=== PATIENT | male | born 1960 | race Caucasian/White ===

== ENCOUNTER 2019-01-01 17:02 | Emergency (ER) | payer MEDICAID ==
[~2019-01-01] VITALS: Ht 180.3 cm; Wt 78.0 kg
[2019-01-01 19:25] VITALS: BP 149/87
== END 2019-01-01 19:31 | disposition home or self-care (01) ==
LOC: ED 19:00
DX: G70.00 Myasthenia gravis without (acute) exacerbation (principal); Z76.0 Encounter for issue of repeat prescription
CPT/HCPCS: 99283

== ENCOUNTER 2019-09-15 11:42 | Emergency (ER) | payer MEDICAID ==
[~2019-09-15] VITALS: Ht 180.3 cm; Wt 80.6 kg
[~2019-09-15 11:42] MED LIST: NICO-487 TD; PRED20TA PO; PYRI60TA PO; SUMA25TA3 PO
[2019-09-15 11:53] VITALS: BP 144/96
--- NOTE | 2019-09-15 13:46 | NUR ---
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
== END 2019-09-15 14:45 | disposition home or self-care (01) ==
LOC: ED 14:28
DX: G70.00 Myasthenia gravis without (acute) exacerbation (principal); Z76.0 Encounter for issue of repeat prescription
CPT/HCPCS: 99281

== ENCOUNTER 2019-10-21 09:11 | Emergency (ER) | payer MEDICAID ==
[~2019-10-21] VITALS: Ht 180.3 cm; Wt 78.2 kg
[2019-10-21 09:17] VITALS: BP 139/88
[2019-10-21] MEDS ORDERED: LIDOCAINE-MPF 1%, 5ML ONE (09:41)
[2019-10-21] MEDS ORDERED: LIDOCAINE-MPF 1%, 5ML INFIL ONE (10:00)
== END 2019-10-21 11:05 | disposition home or self-care (01) ==
LOC: ED 10:45
DX: L02.212 Cutaneous abscess of back [any part, except buttock and flank] (principal); F17.210 Nicotine dependence, cigarettes, uncomplicated
CPT/HCPCS: 10060; 99283

== ENCOUNTER 2020-06-30 13:13 | Emergency (ER) | payer MEDICAID ==
[~2020-06-30] VITALS: Ht 185.4 cm; Wt 80.0 kg
[~2020-06-30 13:13] MED LIST changes: -NICO-487 TD; +NICO-587 TD
[2020-06-30 13:37] VITALS: BP 134/99
--- NOTE | 2020-06-30 14:11 | NUR ---
TRIAGE PROVIDER PROVIDE PATIENT WITH MED REFILL THEN DISCHARGED
== END 2020-06-30 14:13 | disposition home or self-care (01) ==
LOC: ED 13:50
DX: G70.01 Myasthenia gravis with (acute) exacerbation (principal); Z76.0 Encounter for issue of repeat prescription
CPT/HCPCS: 99281

== ENCOUNTER 2020-07-19 12:56 | Emergency (ER) | payer MEDICAID ==
[~2020-07-19] VITALS: Ht 180.3 cm; Wt 83.7 kg
[2020-07-19 13:01] VITALS: BP 127/89
--- NOTE | 2020-07-19 13:10 | NUR ---
Pt requesting refill of meds for myesthenia gravis. Seen here from same on 06/30/20 (hasn't been able to see PCP) NO symptoms at this time (sxs usually track with vision abnormalities then fine motor).
== END 2020-07-19 14:25 | disposition home or self-care (01) ==
LOC: ED 13:51
DX: G70.00 Myasthenia gravis without (acute) exacerbation (principal); Z76.0 Encounter for issue of repeat prescription
CPT/HCPCS: 99281